=== PATIENT | female | born 1965 | race Hispanic/Latino ===

== ENCOUNTER 2018-02-14 19:42 | Emergency (ER) | payer MEDICARE ==
[2018-02-14] MEDS ORDERED: ONDANSETRON HCL 4 MG/2 ML VIAL ONE (20:12)
[2018-02-14] MEDS ORDERED: KETOROLAC TROMETHAMINE 30MG/ML ONE (20:13)
[2018-02-14] MEDS ORDERED: PREDNISONE 20 MG TABLET ONE (20:13)
[2018-02-14 20:23] LABS: BASOPHILS % (AUTO) 1.1 % (0.0-5.0); EOSINOPHILS % (AUTO) 4.5 % (0.0-8.0); HEMATOCRIT 39.8 % (36-48); LYMPHOCYTES % (AUTO) 20.4 % (21.0-51.0); MEAN CORPUSCULAR HEMOGLOBIN 30.1 pg (27.0-33.0); MEAN CORPUSCULAR HGB CONC 34.5 g/dL (32.0-36.0); MEAN CORPUSCULAR VOLUME 87.2 fL (79-99); MONOCYTES % (AUTO) 4.8 % (3.0-13.0); NEUTROPHILS % (AUTO) 69.2 % (40.0-77.0); PLATELET COUNT (AUTO) 183 K/uL (130-400); RED BLOOD CELL COUNT(AUTO) 4.57 MIL/uL (4.00-5.50); RED CELL DISTRIBUTION WIDTH 13.3 % (11.0-15.5); WHITE BLOOD COUNT (AUTO) 12.1 K/uL (4.8-10.8)
[2018-02-14 20:27] LABS: APPEARANCE,URINE Clear (CLEAR); BILIRUBIN,URINE Negative (NEGATIVE); COLOR,URINE Yellow (YELLOW); GLUCOSE, URINE (UA) Negative (NEGATIVE); KETONES,URINE Negative (NEGATIVE); LEUKOCYTE ESTERASE ,URINE Trace (NEGATIVE); NITRATE,URINE Negative (NEGATIVE); OCCULT BLOOD,URINE Negative (NEGATIVE); PROTEIN,URINE Negative (NEGATIVE); UROBILINOGEN,URINE 0.2 mg/dL (0.2-1.0)
[2018-02-14] MEDS ORDERED: IPRATROPIUM/ALBUTEROL SULFATE 3 ML SOLUTION IH ONE (20:34)
[2018-02-14 20:35] LABS: BACTERIA,URINE Few /HPF (None Seen); MUCUS,URINE Rare LPF (None Seen); RBC,URINE 0-1 /HPF (0-1); SQUAMOUS EPITHELIAL CELL,UR Few /HPF (0-2)
[2018-02-14 20:35] LABS: CREATININE 0.9 mg/dL (0.5-1.5); POTASSIUM 3.6 mmol/L (3.5-5.1)
[2018-02-14 20:39] LABS: ALBUMIN 3.6 g/dL (3.5-5.0); BILIRUBIN,TOTAL 0.5 mg/dL (0.2-1.0); TOTAL PROTEIN, SERUM 7.8 g/dL (6.0-8.3)
== END 2018-02-14 22:18 | disposition home or self-care (01) ==
LOC: EDH 19:42
DX: R51 Headache (principal); R06.02 Shortness of breath; F41.9 Anxiety disorder, unspecified; F32.9 Major depressive disorder, single episode, unspecified; Z90.49 Acquired absence of other specified parts of digestive tract; Z90.710 Acquired absence of both cervix and uterus; Z98.890 Other specified postprocedural states
CPT/HCPCS: 36415; 70450; 71045; 80053; 81001; 85025; 87804 ×2; 94640; 96374; 96375; 99284; J1885; J2405

== ENCOUNTER 2018-04-08 18:08 | Emergency (ER) | payer MEDICARE ==
[2018-04-08] MEDS ORDERED: DIPHENHYDRAMINE HCL 25 MG CAPSULE ONE (18:37)
[2018-04-08] MEDS ORDERED: FAMOTIDINE 20MG TAB 20 MG TAB ONE (18:37)
== END 2018-04-08 19:54 | disposition home or self-care (01) ==
LOC: EDH 18:08
DX: T78.40XA Allergy, unspecified, initial encounter (principal); F32.9 Major depressive disorder, single episode, unspecified; F41.9 Anxiety disorder, unspecified; Z90.49 Acquired absence of other specified parts of digestive tract; Z90.710 Acquired absence of both cervix and uterus; Z98.890 Other specified postprocedural states; X58.XXXA Exposure to other specified factors, initial encounter
CPT/HCPCS: 99283; Q0163

== ENCOUNTER 2018-07-23 19:55 | Emergency (ER) | payer OTHER, MEDICARE ==
[2018-07-23 20:56] LABS: BASOPHILS % (AUTO) 0.7 % (0.0-5.0); EOSINOPHILS % (AUTO) 2.3 % (0.0-8.0); HEMATOCRIT 39.5 % (36-48); LYMPHOCYTES % (AUTO) 18.2 % (21.0-51.0); MEAN CORPUSCULAR HGB CONC 33.4 g/dL (32.0-36.0); MEAN CORPUSCULAR VOLUME 86.6 fL (79-99); MONOCYTES % (AUTO) 3.7 % (3.0-13.0); NEUTROPHILS % (AUTO) 75.1 % (40.0-77.0); PLATELET COUNT (AUTO) 191 K/uL (130-400); RED BLOOD CELL COUNT(AUTO) 4.56 MIL/uL (4.00-5.50)
[2018-07-23 21:06] LABS: CREATININE 0.8 mg/dL (0.5-1.5); POTASSIUM 3.5 mmol/L (3.5-5.1)
[2018-07-23 21:10] LABS: ALBUMIN 3.4 g/dL (3.5-5.0); BILIRUBIN,TOTAL 0.4 mg/dL (0.2-1.0); TOTAL PROTEIN, SERUM 7.6 g/dL (6.0-8.3)
[2018-07-23] MEDS ORDERED: LEVOFLOXACIN 500 MG TABLET ONE (21:47)
== END 2018-07-23 22:01 | disposition home or self-care (01) ==
LOC: EDH 19:55
DX: A04.9 Bacterial intestinal infection, unspecified (principal)
CPT/HCPCS: 36415; 80053; 83690; 85025

== ENCOUNTER 2019-01-18 08:35 | Emergency (ER) | payer OTHER, MEDICARE ==
[2019-01-18 09:45] LABS: APPEARANCE,URINE Clear (CLEAR); BILIRUBIN,URINE Negative (NEGATIVE); COLOR,URINE Yellow (YELLOW); GLUCOSE, URINE (UA) Negative (NEGATIVE); KETONES,URINE Negative (NEGATIVE); LEUKOCYTE ESTERASE ,URINE Negative (NEGATIVE); NITRATE,URINE Negative (NEGATIVE); OCCULT BLOOD,URINE Negative (NEGATIVE); PH,URINE 6.5 (5.0-8.0); PROTEIN,URINE Negative (NEGATIVE); UROBILINOGEN,URINE 0.2 mg/dL (0.2-1.0)
[2019-01-18] MEDS ORDERED: KETOROLAC TROMETHAMINE 60 MG/2 ML VIAL ONE (09:51)
== END 2019-01-18 10:41 | disposition home or self-care (01) ==
LOC: EDH 08:35
DX: M54.5 Low back pain (principal); F41.9 Anxiety disorder, unspecified; F31.9 Bipolar disorder, unspecified; Z90.49 Acquired absence of other specified parts of digestive tract; Z90.710 Acquired absence of both cervix and uterus; Z88.1 Allergy status to other antibiotic agents
CPT/HCPCS: 74176; 81003; 96372; 99285; J1885

== ENCOUNTER 2019-05-02 12:11 | Emergency (ER) | payer OTHER, MEDICARE | END 2019-05-02 14:02 | disposition left against medical advice (07) | LOC: EDH 12:11 | DX: R10.31 Right lower quadrant pain (principal); F41.9 Anxiety disorder, unspecified; F31.9 Bipolar disorder, unspecified; Z88.6 Allergy status to analgesic agent; Z98.890 Other specified postprocedural states; Z90.49 Acquired absence of other specified parts of digestive tract; Z90.710 Acquired absence of both cervix and uterus | CPT/HCPCS: 99281 ==

== ENCOUNTER 2019-11-30 10:23 | Emergency (ER) | payer OTHER, MEDICARE | END 2019-11-30 12:49 | disposition home or self-care (01) | LOC: EDH 10:23 | DX: S60.011A Contusion of right thumb without damage to nail, initial encounter (principal); F41.9 Anxiety disorder, unspecified; F32.9 Major depressive disorder, single episode, unspecified; Z98.890 Other specified postprocedural states; Z90.49 Acquired absence of other specified parts of digestive tract; Z90.710 Acquired absence of both cervix and uterus; Z88.1 Allergy status to other antibiotic agents; W22.8XXA Striking against or struck by other objects, initial encounter; Y93.89 Activity, other specified; Y92.098 Other place in other non-institutional residence as the place of occurrence of the external cause; Y99.8 Other external cause status | CPT/HCPCS: 73130 ==

== ENCOUNTER 2021-11-21 11:39 | Emergency (ER) | payer OTHER, MEDICARE ==
[~2021-11-21] VITALS: Ht 157.5 cm; Wt 117.9 kg
[2021-11-21 11:41] VITALS: BP 147/79
[2021-11-21] MEDS ORDERED: PROCHLORPERAZINE 10MG/2ML INJ IV ONE (13:30)
[2021-11-21] MEDS ORDERED: 0.9%NACL 1000ML 1,000 ML IV ONE (13:30)
[2021-11-21] MEDS ORDERED: DiphenhydrAMINE HCL 50 MG/ML VIAL IV ONE (13:30)
[2021-11-21 13:35] LABS: BASOPHILS % (AUTO) 0.4 % (0.0-5.0); EOSINOPHILS % (AUTO) 1.5 % (0.0-8.0); HEMATOCRIT 39.2 % (36-48); LYMPHOCYTES % (AUTO) 20.5 % (21.0-51.0); MEAN CORPUSCULAR HEMOGLOBIN 30.1 pg (27.0-33.0); MEAN CORPUSCULAR HGB CONC 34.7 g/dL (32.0-36.0); MEAN CORPUSCULAR VOLUME 86.7 fL (79-99); NEUTROPHILS % (AUTO) 71.7 % (40.0-77.0); PLATELET COUNT (AUTO) 197 K/uL (130-400); RED BLOOD CELL COUNT(AUTO) 4.52 MIL/uL (4.00-5.50); WHITE BLOOD COUNT (AUTO) 17.5 K/uL (4.8-10.8)
[2021-11-21 13:43] LABS: CREATININE 0.8 mg/dL (0.5-1.5); POTASSIUM 3.6 mmol/L (3.5-5.1)
[2021-11-21 13:44] LABS: APPEARANCE,URINE CLEAR (CLEAR); BILIRUBIN,URINE NEGATIVE (NEGATIVE); COLOR,URINE YELLOW (YELLOW); GLUCOSE, URINE (UA) NEGATIVE (NEGATIVE); KETONES,URINE NEGATIVE (NEGATIVE); LEUKOCYTE ESTERASE ,URINE 250 Leu/uL (NEGATIVE); NITRATE,URINE NEGATIVE (NEGATIVE); OCCULT BLOOD,URINE NEGATIVE (NEGATIVE); PH,URINE 6.5 (5.0-8.0); PROTEIN,URINE NEGATIVE (NEGATIVE); UROBILINOGEN,URINE 0.2 mg/dL (0.2-1.0)
[2021-11-21 13:47] LABS: ALBUMIN 3.5 g/dL (3.5-5.0); TOTAL PROTEIN, SERUM 7.6 g/dL (6.0-8.3)
[2021-11-21 13:57] LABS: BACTERIA,URINE RARE /HPF (None Seen); MUCUS,URINE RARE LPF (None Seen); SQUAMOUS EPITHELIAL CELL,UR RARE /HPF (0-2)
[2021-11-21] MEDS ORDERED: ONDA4TAB10 PO (14:45)
[2021-11-21] MEDS ORDERED: MACR100 PO (14:45)
== END 2021-11-21 15:02 | disposition home or self-care (01) ==
LOC: EDH 11:39
DX: N39.0 Urinary tract infection, site not specified (principal); J06.9 Acute upper respiratory infection, unspecified; E86.0 Dehydration; R51.9 Headache, unspecified; Z20.822 Contact with and (suspected) exposure to COVID-19; F41.9 Anxiety disorder, unspecified; F32.A Depression, unspecified; Z88.1 Allergy status to other antibiotic agents; Z79.899 Other long term (current) drug therapy; Z90.49 Acquired absence of other specified parts of digestive tract; Z98.890 Other specified postprocedural states
CPT/HCPCS: 99284; 96374; 70450; 87635; 96361; 96375; 80053; 85025; 87040 ×2; 87088; 87804 ×2; 83605; 81001; 36415; C9803; J1200; J7030; J0780

== ENCOUNTER 2022-10-19 12:20 | Emergency (ER) | payer OTHER, MEDICARE ==
[~2022-10-19] VITALS: Ht 157.5 cm; Wt 127.0 kg
[~2022-10-19 12:20] MED LIST: MACR100 PO; ONDA4TAB10 PO
[2022-10-19 12:39] VITALS: BP 168/80; PULSE 88; RESP 16; O2SAT 96
[2022-10-19] MEDS ORDERED: ONDANSETRON 4MG INJ IVP ONE (13:00)
[2022-10-19] MEDS ORDERED: KETOROLAC 15MG/ML VIAL (15MG/ML) IV ONE (13:00)
[2022-10-19 13:37] LABS: BASOPHILS # (AUTO) 0.08 K/uL (0.00-0.20); BASOPHILS % (AUTO) 0.7 % (0.0-5.0); EOSINOPHILS # (AUTO) 0.28 K/uL (0.00-0.70); EOSINOPHILS % (AUTO) 2.6 % (0.0-8.0); HEMATOCRIT 40.9 % (36-48); IMMATURE GRANULOCYTE ABSOLUTE 0.09 K/uL (0-1); LYMPHOCYTES % (AUTO) 27.2 % (21.0-51.0); MEAN CORPUSCULAR HEMOGLOBIN 29.7 pg (27.0-33.0); MEAN CORPUSCULAR HGB CONC 34.5 g/dL (32.0-36.0); MEAN CORPUSCULAR VOLUME 86.3 fL (79-99); MONOCYTES # (AUTO) 0.6 K/uL (0.1-1.0); MONOCYTES % (AUTO) 5.5 % (3.0-13.0); NEUTROPHILS # (AUTO) 6.8 K/uL (1.8-7.7); NEUTROPHILS % (AUTO) 63.2 % (40.0-77.0); PLATELET COUNT (AUTO) 195 K/uL (130-400); RED BLOOD CELL COUNT(AUTO) 4.74 MIL/uL (4.00-5.50); RED CELL DISTRIBUTION WIDTH 12.7 % (11.0-15.5); WHITE BLOOD COUNT (AUTO) 10.8 K/uL (4.8-10.8)
[2022-10-19 13:43] LABS: ADD UA MICROSCOPIC YES; APPEARANCE,URINE CLEAR (CLEAR); BILIRUBIN,URINE NEGATIVE (NEGATIVE); COLOR,URINE YELLOW (YELLOW); GLUCOSE, URINE (UA) NEGATIVE (NEGATIVE); KETONES,URINE NEGATIVE (NEGATIVE); LEUKOCYTE ESTERASE ,URINE 250 Leu/uL (NEGATIVE); NITRATE,URINE NEGATIVE (NEGATIVE); OCCULT BLOOD,URINE NEGATIVE (NEGATIVE); PROTEIN,URINE NEGATIVE (NEGATIVE); UROBILINOGEN,URINE 0.2 mg/dL (0.2-1.0)
[2022-10-19 13:45] LABS: CREATININE 0.7 mg/dL (0.5-1.5); POTASSIUM 3.6 mmol/L (3.5-5.1)
[2022-10-19 13:48] LABS: BACTERIA,URINE Rare /HPF (None Seen); MUCUS,URINE Few LPF (None Seen); RBC,URINE 0-1 /HPF (0-1); SQUAMOUS EPITHELIAL CELL,UR Few /HPF (0-2)
[2022-10-19 13:56] LABS: ALBUMIN 3.6 g/dL (3.5-5.0); BILIRUBIN,TOTAL 0.8 mg/dL (0.2-1.0); TOTAL PROTEIN, SERUM 7.6 g/dL (6.0-8.3)
[2022-10-19] MEDS ORDERED: SULFAMETHOX-TMP DS 800/160 TAB PO SCH (14:30)
[2022-10-19] MEDS ORDERED: IOHEXOL-350 75 ML VIAL IV ONE (15:57)
[2022-10-19] MEDS ORDERED: IBUP-2070 PO (16:58)
[2022-10-19] MEDS ORDERED: SULF1TAB42 PO (16:58)
== END 2022-10-19 17:25 | disposition home or self-care (01) ==
LOC: EDH 12:22
DX: N39.0 Urinary tract infection, site not specified (principal); F41.9 Anxiety disorder, unspecified; F32.A Depression, unspecified; J45.909 Unspecified asthma, uncomplicated; Z90.49 Acquired absence of other specified parts of digestive tract
CPT/HCPCS: 99285; 74177; 96374; 96375; 80053; 84702; 85025; 87088; 81001; 36415; J2405; J1885; Q9967

== ENCOUNTER → 2022-12-05 | Outpatient (CLI) | payer OTHER, MEDICARE ==
[~2022-12-05] MED LIST changes: +IBUP-2070 PO; +SULF1TAB42 PO
[2022-12-05 22:28] VITALS: PULSE 71; RESP 20
[2022-12-05 23:02] VITALS: PULSE 66; RESP 12
[2022-12-05 23:31] VITALS: PULSE 67; RESP 14
[2022-12-06] VITALS (11 sets, daily range): PULSE 62–79; RESP 10–14
== END | disposition home or self-care (01) ==
LOC: SLP 20:33
PROVIDERS: ATTEND Internal Medicine
DX: G47.33 Obstructive sleep apnea (adult) (pediatric) (principal); R06.02 Shortness of breath
CPT/HCPCS: 95810

== ENCOUNTER → 2024-12-19 | Outpatient (CLI) | payer OTHER, MEDICARE ==
[~2024-12-19] MED LIST changes: +IBUP-1492 PO; -IBUP-2070 PO; +ONDA-243 PO; -ONDA4TAB10 PO
[2024-12-19 22:46] VITALS: PULSE 88; RESP 18
[2024-12-19 23:30] VITALS: PULSE 54; RESP 14
[2024-12-20] VITALS (9 sets, daily range): PULSE 58–68; RESP 12–16
== END | disposition home or self-care (01) ==
LOC: SLP 20:26
PROVIDERS: ATTEND Internal Medicine
DX: G47.33 Obstructive sleep apnea (adult) (pediatric) (principal); R06.83 Snoring; I10 Essential (primary) hypertension; R53.83 Other fatigue; F32.A Depression, unspecified; E66.9 Obesity, unspecified; R35.1 Nocturia
CPT/HCPCS: 95810

== ENCOUNTER → 2025-01-02 | Outpatient (CLI) | payer OTHER, MEDICARE ==
[2025-01-02 22:26] VITALS: PULSE 74; RESP 18
[2025-01-02 23:00] VITALS: PULSE 68; RESP 12
[2025-01-02 23:30] VITALS: PULSE 74; RESP 16
[2025-01-03] VITALS (10 sets, daily range): PULSE 62–74; RESP 12–16
== END ==
LOC: SLP 20:24
PROVIDERS: ATTEND Internal Medicine
DX: G47.33 Obstructive sleep apnea (adult) (pediatric) (principal); I10 Essential (primary) hypertension; R53.83 Other fatigue; F32.A Depression, unspecified; F41.9 Anxiety disorder, unspecified
CPT/HCPCS: 95811